=== PATIENT | male | born 1980 | race Two or more races ===

== ENCOUNTER 2017-03-08 20:07 | Emergency (ER) | payer MEDICAID ==
[~2017-03-08] VITALS: Ht 175.3 cm; Wt 133.4 kg
--- NOTE | 2017-03-08 21:02 | NUR ---
DR SCHOFIELD INTO EVAL PATIENT
[2017-03-08 21:23] LABS: BASOPHILS # (AUTO) 0.1 K/uL (0.0-8.0); BASOPHILS % (AUTO) 1.2 % (0.0-2.0); EOSINOPHILS # (AUTO) 0.2 K/uL (0.0-0.7); EOSINOPHILS % (AUTO) 2.4 % (0.0-7.0); HEMATOCRIT 46.9 % (40-50); HEMOGLOBIN 15.7 G/DL (14.0-18.0); LYMPHOCYTES # (AUTO) 1.8 K/UL (0.8-4.8); LYMPHOCYTES % (AUTO) 22.6 % (20.5-51.5); MEAN CORPUSCULAR HEMOGLOBIN 30.2 UUG (27.0-31.0); MEAN CORPUSCULAR HGB CONC 34 g/dL (32.0-37.0); MEAN CORPUSCULAR VOLUME 90.2 FL (82.0-92.0); MONOCYTES # (AUTO) 0.7 K/UL (0.1-1.30); MONOCYTES % (AUTO) 8.6 % (0.0-11.0); NEUTROPHILS # (AUTO) 4.9 K/UL (1.8-8.9); NEUTROPHILS % (AUTO) 65.2 % (38.5-71.5); PLATELET COUNT (AUTO) 208 K/UL (150-450); WHITE BLOOD COUNT (AUTO) 7.8 K/UL (4.0-11.2)
[2017-03-08 21:34] LABS: CREATININE 1.1 mg/dL (0.6-1.3); POTASSIUM 4.3 mmol/L (3.5-5.1)
--- NOTE | 2017-03-08 22:51 | NUR ---
Patient discharged to home in stable conditon. Written and verbal after care instructions given. Patient verbalizes understanding of instructions. WALKERD OUT OF ER WITH STEADY GAIT. NO DISTRESS NOTED
[2017-03-08 22:52] VITALS: BP 145/85
== END 2017-03-08 22:54 | disposition home or self-care (01) ==
LOC: ER 20:12
DX: G43.909 Migraine, unspecified, not intractable, without status migrainosus (principal); F10.20 Alcohol dependence, uncomplicated; Z90.49 Acquired absence of other specified parts of digestive tract
CPT/HCPCS: 36415; 70030-TC; 70450; 71010; 85025; 85730; 93005; A4663